=== PATIENT | male | born 1960 | race Caucasian/White ===

== ENCOUNTER 2023-04-07 10:39 | Emergency (ER) | payer MEDICAID, OTHER ==
[~2023-04-07] VITALS: Ht 188 cm; Wt 93.0 kg
[2023-04-07 10:44] VITALS: O2SAT 98
[2023-04-07] MEDS ORDERED: SODIUM CHLORIDE 0.9% 1,000 ML IV ONE (11:00)
[2023-04-07 11:29] LABS: BASOPHILS % 0.1 % (0.0-2.0); EOSINOPHILS % 1.2 % (0.0-5.0); HEMATOCRIT. 44.5 % (42.0-52.0); HEMOGLOBIN. 14.7 g/dL (14.0-18.0); LYMPHOCYTES % 18.7 % (20.0-50.0); MEAN CORPUSCULAR HEMOGLOBIN 32.6 pg (28.0-32.0); MEAN CORPUSCULAR HGB CONC 33.1 g/dL (31.0-37.0); MEAN CORPUSCULAR VOLUME 98.5 fL (80.0-94.0); MEAN PLATELET VOLUME 9.2 fl (7.4-10.4); MONOCYTES % 5.2 % (2.0-8.0); NEUTROPHILS % 74.8 % (40.0-76.0); PLATELET 167 x1000/uL (130-400); RED BLOOD CELL COUNT 4.52 mill/uL (4.7-6.1); RED CELL DISTRIBUTION WIDTH 13.6 % (11.6-14.6); WHITE BLOOD COUNT 7.8 x1000/uL (4.5-11.0)
[2023-04-07 11:33] LABS: CHLORIDE 107 mEq/L (98-107); INDEX HEMOLYSI 1 (1-3); INDEX ICTERIC 1 (1-4); INDEX LIPEMIC 1 (1-3); POTASSIUM 4.1 mEq/L (3.5-5.1); SODIUM 132 mEq/L (136-145)
[2023-04-07 11:44] LABS: ALANINE AMINOTRANSFERASE 30 IU/L (13-61); ALBUMIN 3.5 g/dL (3.4-5.0); ASPARTATE AMINOTRANSFERASE 15 IU/L (15-37); CALCIUM 8.3 mg/dL (8.5-10.1); CARBON DIOXIDE 23 mEq/L (21-32); CREATININE 1.1 mg/dL (0.6-1.3); ETHANOL BLOOD < 10 mg/dL (-10); GLUCOSE 135 mg/dL (70-105); NT PRO B-TYPE NATRIURETIC PEP 124 pg/mL (5-125); PROTEIN TOTAL 7.2 g/dL (6.0-8.3); TROPONIN I HIGH SENSITIVITY 5 ng/L (<78); UREA NITROGEN BLOOD 19 mg/dL (7-21)
[2023-04-07 15:37] LABS: TROPONIN I HIGH SENSITIVITY 5 ng/L (<78)
[2023-04-07 16:11] LABS: CLARITY URINE CLEAR (CLEAR); COLOR URINE YELLOW (YELLOW)
[2023-04-07 16:12] LABS: GLUCOSE URINE NEGATIVE (NEGATIVE); KETONES URINE NEGATIVE (NEGATIVE); NITRITE URINE NEGATIVE (NEGATIVE); OCCULT BLOOD URINE NEGATIVE (NEGATIVE); PH URINE 6.5 (4.5-8.0); PROTEIN URINE TRACE (NEGATIVE)
[2023-04-07 16:13] LABS: LEUKOCYTE ESTERASE URINE NEGATIVE (NEGATIVE)
[2023-04-07 16:14] LABS: BACTERIA URINE NONE SEEN; RBC URINE 0-2 /hpf (0-2); SQUAMOUS EPITHELIAL CELL URINE NONE SEEN /lpf (RARE/1+); WBC URINE 0-2 /hpf (0-2)
[2023-04-07 16:14] LABS: *AMPHETAMINES SCREEN URINE NEGATIVE (NEGATIVE); *BARBITURATES SCREEN URINE NEGATIVE (NEGATIVE); *BENZODIAZEPINES SCREEN URINE NEGATIVE (NEGATIVE); *COCAINE SCREEN URINE NEGATIVE (NEGATIVE); CANNABINOID URINE SCREEN NEGATIVE (NEGATIVE); ECSTASY MDMA SCREEN URINE NEGATIVE (NEGATIVE); METHADONE URINE SCREEN NEGATIVE (NEGATIVE); OPIATES URINE SCREEN NEGATIVE (NEGATIVE); PHENCYCLIDINE URINE SCREEN NEGATIVE (NEGATIVE)
[2023-04-07 16:15] LABS: YEAST URINE NONE SEEN
[2023-04-07 17:38] VITALS: BP 127/78; PULSE 62; RESP 15; TEMP 98.5
== END 2023-04-07 17:47 | disposition home or self-care (01) ==
LOC: ER 10:46 → EDBEDREQ 14:18 → EDBEDREQTM 14:18 → ER 17:47
DX: R55 Syncope and collapse (principal); R41.82 Altered mental status, unspecified
CPT/HCPCS: 80053; 80305; 81003; 80320; 83880; 85025; 84484; 36415; 71045; 70450; 72125; 74176; 93005; 96360; 99285; J7030; Z7610; G0480